=== PATIENT | male | born 1995 | race Caucasian/White ===

== ENCOUNTER 2018-04-11 14:27 | Emergency (ER) | payer MEDICAID, OTHER ==
[~2018-04-11] VITALS: Ht 167.6 cm; Wt 72.7 kg
[2018-04-11 14:34] VITALS: BP 144/80
[2018-04-11] MEDS ORDERED: TETanus/Pertussis (Acell)/Diphther VAC/PF (Tdap-Adult) 0.5ml syringe IM ONE (15:15)
[2018-04-11] MEDS ORDERED: BUPIVAcaine/PF 2.5 mg/ml (0.25%) 30ml vial IJ ONE (15:15)
[2018-04-11] MEDS ORDERED: BUPIVAcaine/PF 2.5mg/ml (0.25%) 10ml vial IJ ONE ×2 (15:25→16:40)
[2018-04-11] MEDS ORDERED: IBUP-1984 PO (18:03)
[2018-04-11] MEDS ORDERED: CEPH500C5 PO (18:03)
== END 2018-04-11 18:14 | disposition home or self-care (01) ==
LOC: ER 14:27
DX: S91.311A Laceration without foreign body, right foot, initial encounter (principal); W25.XXXA Contact with sharp glass, initial encounter; Y93.01 Activity, walking, marching and hiking; Y92.89 Other specified places as the place of occurrence of the external cause; Y99.9 Unspecified external cause status
CPT/HCPCS: 12002; 73630; 90471; 90715; 99284; J3490